=== PATIENT | male | born 1995 | race Caucasian/White ===

== ENCOUNTER 2021-05-17 17:18 | Emergency (ER) | payer OTHER ==
[~2021-05-17] VITALS: Ht 177.8 cm; Wt 125.0 kg
[2021-05-17] MEDS ORDERED: FAMOTIDINE 20 MG/2 ML VIAL IVP ONE (18:45)
[2021-05-17] MEDS ORDERED: IOHEXOL 300 MG/ML 100ML VIAL. IV ONE (19:00)
[2021-05-17] MEDS ORDERED: CONTRAST GIVEN. MC PRN (19:00)
[2021-05-17 19:03] LABS: FECAL OB PT POSITIVE (NEG)
[2021-05-17 20:44] LABS: BASO % 0 % (0-3); EOS # 0.3 x10^3/uL (0.0-0.7); EOS % 3 % (0-3); HEMOGLOBIN 15.3 g/dL (13.0-17.5); LYMPH # 3.4 x10^3/uL (1.0-4.8); LYMPH % 25 % (24-48); MEAN CORPUSCULAR HEMOGLOBIN 30 pg (25-35); MEAN CORPUSCULAR HGB CONC 35 g/dL (31-37); MEAN CORPUSCULAR VOLUME 87 fL (79-100); MONO % 8 % (0-9); NEUT # 8.5 x10^3/uL (1.8-7.7); NEUT % 64 % (31-73); PLATELET COUNT 485 x10^3/uL (140-400); RED BLOOD COUNT 5.07 x10^6/uL (4.30-5.70); RED CELL DISTRIBUTION WIDTH 12.8 % (11.5-14.5); WHITE BLOOD COUNT 13.3 x10^3/uL (4.0-11.0)
[2021-05-17 20:54] LABS: CALCIUM 9.3 mg/dL (8.5-10.1); CREATININE 0.9 mg/dL (0.7-1.3); GFR 101.2; POTASSIUM 3.8 mmol/L (3.5-5.1)
[2021-05-17 21:08] LABS: ALBUMIN/GLOBULIN RATIO 0.9 (1.0-1.7); TOTAL BILIRUBIN 0.3 mg/dL (0.2-1.0); TOTAL PROTEIN 8.7 g/dL (6.4-8.2)
--- NOTE | 2021-05-17 21:50 | RAD ---
CT abdomen pelvis with contrast. HISTORY: Rectal bleeding CT abdomen pelvis was done using 75 mL Omnipaque 350 contrast. Lung bases are clear. There is no effu rudy. Liver is normal in appearance. There is no calcified gallstone. Spleen and adrenal glands are u nremarkable. Pancreas is normal in appearance. There is no mass or hydronephrosis in the kidneys. The re is no free air or bowel obstruction. Appendix is normal. There is no calcified gallstone or gallbl adder wall thickening. There is not evidence of wall thickening of the colon to suggest a colitis. There is no abnormal enha ncement of the bowel. Extravasated contrast is not demonstrated. IMPRESSION: 1. No abdominal or pelvic mass or acute finding noted. 2. No bowel obstruction. 3. No bowel wall thickening or abnormal enhancement of the bowel wall. I PQRS Compliance Statement: One or more of the following individualized dose reduction techniques were utilized for this examinat ion: 1. Automated exposure control 2. Adjustment of the mA and/or kV according to patient size 3. Use of iterative reconstruction technique Electronically signed by: Carl Rodney MD (05/17/2021 9:47 PM) [facility]
--- NOTE | 2021-05-17 22:57 | PHYS DOC ---
Past Medical History Past Surgical History: No Surgical History Smoking Status: Never Smoker Alcohol Use: None General Adult EDM: Chief Complaint: RECTAL BLEED HPI: HPI: Patient is a 25 year old male presenting today from a residential for rectal bleeding and rectal pain. Patient states the rectal bleeding began a month ago as well as the rectal pain. Patient States the rectal bleeding is worse after bowel movements. Patient states when this rectal bleeding began a month ago he was seen at [facility]. He states they gave him a cream to apply to his rectal area. He states symptoms had improved and today they reoccurred. Denies any abdominal pain, denies any nausea or vomiting, denies any fever. He arrives in the ED with multiple bags of food and drinks. Review of Systems: Review of Systems: Constitutional: Denies fever or chills. [] Eyes: Denies change in visual acuity. [] HENT: Denies nasal congestion or sore throat. [] Respiratory: Denies cough or shortness of breath. [] Cardiovascular: Denies chest pain or edema. [] GI: Reports rectal bleeding, denies abdominal pain nausea, vomiting, bloody stools : Denies dysuria. [] Musculoskeletal: Denies back pain or joint pain. [] Integument: Denies rash. [] Neurologic: Denies headache, focal weakness or sensory changes. [] Psychiatric: Denies depression or anxiety. [] Heart Score: C/O Chest Pain: N/A Risk Factors: Risk Factors: DM, Current or recent (<one month) smoker, HTN, HLP, family history of CAD, obesity. Risk Scores: Score 0 - 3: 2.5% MACE over next 6 weeks - Discharge Home Score 4 - 6: 20.3% MACE over next 6 weeks - Admit for Clinical Observation Score 7 - 10: 72.7% MACE over next 6 weeks - Early Invasive Strategies Current Medications: Current Medications Medications (Trade) Dose Ordered Sig/Ina Start Time Stop Time Status Last Admin Dose Admin Famotidine (Pepcid Vial) 20 mg 1X ONCE 05/17/21 18:45 05/17/21 18:46 DC 05/17/21 20:18 20 MG Info (CONTRAST GIVEN -- Rx MONITORING) 1 each PRN DAILY PRN 05/17/21 19:00 05/19/21 18:59 Iohexol (Omnipaque 300 Mg/ml) 75 ml 1X ONCE 05/17/21 19:00 05/17/21 19:01 DC 05/17/21 21:14 75 ML Allergies: Allergies: Allergies Coded Allergies Type Severity Reaction Last Updated Verified No Known Drug Allergies 05/17/21 No Physical Exam: PE: Constitutional: Well developed, well nourished, no acute distress, non-toxic appearance. [] HENT: Normocephalic, atraumatic, bilateral external ears normal, oropharynx moist, no oral exudates, nose normal. [] Eyes: PERRLA, EOMI, conjunctiva normal, no discharge. [] Neck: Normal range of motion, no tenderness, supple, no stridor. [] Cardiovascular:Heart rate regular rhythm, no murmur [] Lungs & Thorax: Bilateral breath sounds clear to auscultation [] Abdomen: Bowel sounds normal, soft, no tenderness, no masses, no pulsatile masses. [] Rectal exam-external rectum noted for small amount of peanut size hemorrhoids Skin: Warm, dry, no erythema, no rash. [] Back: No tenderness, no CVA tenderness. [] Extremities: No tenderness, no cyanosis, no clubbing, ROM intact, no edema. [] Neurologic: Alert and oriented X 3, normal motor function, normal sensory function, no focal deficits noted. [] Psychologic: Affect normal, judgement normal, mood normal. [] Current Patient Data: Labs: Laboratory Tests Test 05/17/21 18:20 05/17/21 20:16 Stool Occult Blood Positive (NEG) White Blood Count 13.3 x10^3/uL (4.0-11.0) H Red Blood Count 5.07 x10^6/uL (4.30-5.70) Hemoglobin 15.3 g/dL (13.0-17.5) Hematocrit 44.0 % (39.0-53.0) Mean Corpuscular Volume 87 fL (79-100) Mean Corpuscular Hemoglobin 30 pg (25-35) Mean Corpuscular Hemoglobin Concent 35 g/dL (31-37) Red Cell Distribution Width 12.8 % (11.5-14.5) Platelet Count 485 x10^3/uL (140-400) H Neutrophils (%) (Auto) 64 % (31-73) Lymphocytes (%) (Auto) 25 % (24-48) Monocytes (%) (Auto) 8 % (0-9) Eosinophils (%) (Auto) 3 % (0-3) Basophils (%) (Auto) 0 % (0-3) Neutrophils # (Auto) 8.5 x10^3/uL (1.8-7.7) H Lymphocytes # (Auto) 3.4 x10^3/uL (1.0-4.8) Monocytes # (Auto) 1.0 x10^3/uL (0.0-1.1) Eosinophils # (Auto) 0.3 x10^3/uL (0.0-0.7) Basophils # (Auto) 0.0 x10^3/uL (0.0-0.2) Sodium Level 138 mmol/L (136-145) Potassium Level 3.8 mmol/L (3.5-5.1) Chloride Level 101 mmol/L (98-107) Carbon Dioxide Level 26 mmol/L (21-32) Anion Gap 11 (6-14) Blood Urea Nitrogen 14 mg/dL (8-26) Creatinine 0.9 mg/dL (0.7-1.3) Estimated GFR (Cockcroft-Gault) 101.2 BUN/Creatinine Ratio 16 (6-20) Glucose Level 79 mg/dL (70-99) Calcium Level 9.3 mg/dL (8.5-10.1) Total Bilirubin 0.3 mg/dL (0.2-1.0) Aspartate Amino Transferase (AST) 23 U/L (15-37) Alanine Aminotransferase (ALT) 30 U/L (16-63) Alkaline Phosphatase 123 U/L (46-116) H Total Protein 8.7 g/dL (6.4-8.2) H Albumin 4.0 g/dL (3.4-5.0) Albumin/Globulin Ratio 0.9 (1.0-1.7) L Laboratory Tests 05/17/21 20:16 Laboratory Tests 05/17/21 20:16 Vital Signs: Vital Signs Date Time Temp Pulse Resp B/P (MAP) Pulse Ox O2 Delivery O2 Flow Rate FiO2 05/17/21 19:22 98 05/17/21 19:22 108 20 141/109 (120) Room Air 05/17/21 17:30 98.5 98.5 EKG: EKG: [] Radiology/Procedures: Radiology/Procedures: []PROCEDURE: CT ABD PELV W/ IV CONTRST ONLY CT abdomen pelvis with contrast. HISTORY: Rectal bleeding CT abdomen pelvis was done using 75 mL Omnipaque 350 contrast. Lung bases are clear. There is no effusion. Liver is normal in appearance. There is no calcified gallstone. Spleen and adrenal glands are unremarkable. Pancreas is normal in appearance. There is no mass or hydronephrosis in the kidneys. There is no free air or bowel obstruction. Appendix is normal. There is no calcified gallstone or gallbladder wall thickening. There is not evidence of wall thickening of the colon to suggest a colitis. There is no abnormal enhancement of the bowel. Extravasated contrast is not demonstrated. IMPRESSION: 1. No abdominal or pelvic mass or acute finding noted. 2. No bowel obstruction. 3. No bowel wall thickening or abnormal enhancement of the bowel wall. PQRS Compliance Statement: One or more of the following individualized dose reduction techniques were ut ilized for this examination: 1. Automated exposure control 2. Adjustment of the mA and/or kV according to patient size 3. Use of iterative reconstruction technique Electronically signed by: Carl Rodney MD (05/17/2021 9:47 PM) [facility] DICTATED and SIGNED BY: CARL RODNEY MD DATE: 05/17/21 [id number] 0 Course & Med Decision Making: Course & Med Decision Making Pertinent Labs and Imaging studies reviewed. (See chart for details) This is a 25-year-old male patient presenting to the ED today with rectal bleedi ng that began a month ago, resolved then returned today. Rectal exam noted for hemorrhoids. Hemoccult positive. CBC with a WBC of 13.3, hemoglobin 15.3, hematocrit 44.0. CT of the abdomen and pelvic is negative for any acute findings. CMP with no acute findings. Patient was discharged to home. Recommended stool softeners. Recommended following up with GI, general surgery and PCP. Ed Disclaimer: Ed Disclaimer: This electronic medical record was generated, in whole or in part, using a voice recognition dictation system. Departure Departure Impression: Primary Impression: Hemorrhoids Qualified Codes: K64.9 - Unspecified hemorrhoids Disposition: HOME / SELF CARE / HOMELESS Condition: STABLE Referrals: LIZZIE SCHWARTZ MD (PCP) follow up next week RAJI FATIMA MD follow up for hemmorrhoids Patient Instructions: Hemorrhoids, [id number] Additional Instructions: You were seen in the emergency room and noted to have hemorrhoids. We highly recommend you follow-up with the provided art studio teacher, general surgeon as well as your primary care doctor. Please consider increasing your dietary fiber intake as well as your water intake. Continue using the cream you were given at [facility]. Also take a stool softener. Scripts Hydrocortisone (ANUSOL-HC) 30 Gm Cream..g. 1 DAMON TP TID for 10 Days, #30 GM 0 Refills Prov: JYOTI CORDOBA APRN 05/17/21 Docusate Sodium (DOCUSATE SODIUM) 100 Mg Capsule 1 CAP PO DAILY for constipation for 30 Days, #30 CAP 0 Refills Prov: JYOTI CORDOBA APRN 05/17/21 JYOTI CORDOBA APRN May 17, 2021 22:57
[2021-05-17] MEDS ORDERED: HYDR30CR61 TP (23:17)
[2021-05-17] MEDS ORDERED: DOCU100C28 PO (23:17)
[2021-05-17 23:22] VITALS: BP 139/94
== END 2021-05-17 23:40 | disposition home or self-care (01) ==
LOC: ER 17:18
DX: K64.9 Unspecified hemorrhoids (principal)
CPT/HCPCS: 36415; 74177; 80053; 82274; 85025; 96374; 99285; J3490; Q9967